=== PATIENT | female | born 2000 | race Caucasian/White ===

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

== ENCOUNTER 2021-02-01 12:17 | Inpatient (IN) | payer MEDICAID ==
[~2021-02-01] VITALS: Ht 162.6 cm; Wt 54.8 kg
[~2021-02-01 12:17] MED LIST: AMOX875T2 PO
[2021-02-01 15:41] LABS: BASOPHILS % (AUTO) 0.5 % (0.0-2.0); EOSINOPHILS % (AUTO) 0.1 % (1.0-6.0); HEMATOCRIT 43.1 % (36-46); HEMOGLOBIN 14.1 g/dL (12.0-16.0); LYMPHOCYTES % (AUTO) 10.2 % (22.0-44.0); MEAN CORPUSCULAR HGB CONC 32.7 G/dL (31.0-37.0); MEAN CORPUSCULAR VOLUME 83 fL (80-100); MONOCYTES # (AUTO) 0.3 K/uL (0.1-1.0); NEUTROPHILS # (AUTO) 8.7 K/uL (1.8-7.7); PLATELET COUNT (AUTO) 275 K/uL (150-450); RED BLOOD CELL COUNT(AUTO) 5.23 MIL/uL (4.00-5.20); RED CELL DISTRIBUTION WIDTH 14.9 % (11.5-14.5)
[2021-02-01 15:42] LABS: NEUTROPHILS % (AUTO) 86.2 % (40.0-70.0)
[2021-02-01 15:56] LABS: ANION GAP 11 mmol/L (8-16); CARBON DIOXIDE 24 mmol/L (22-29); CHLORIDE 106 mmol/L (98-107); CREATININE 0.69 mg/dL (0.60-1.30); GLOMERULAR FILTR. RATE CALC > 60 mL/min (>60); GLUCOSE,RANDOM 124 mg/dL (70-110); POTASSIUM 3.9 mmol/L (3.5-5.1); SODIUM SERUM 141 mmol/L (136-145); UREA NITROGEN, BLOOD 11 mg/dL (7-18)
[2021-02-01 16:09] LABS: ALANINE AMINOTRANSFERASE 23 U/L (12-78); ALKALINE PHOSPHATASE 90 U/L (46-116); ASPARTATE AMINOTRANSFERASE 13 U/L (15-37); BILIRUBIN,TOTAL 0.4 mg/dL (0.1-1.0); HCG,QUANTITATIVE < 1 mIU/mL (0-6); TOTAL PROTEIN, SERUM 7.5 g/dL (6.4-8.2)
[2021-02-01] MEDS ORDERED: HALOPERIDOL LACTATE 5 MG/ML VIAL IM ONE (16:45)
[2021-02-01] MEDS ORDERED: DiphenhydrAMINE HCL 50 MG/ML VIAL IM ONE (16:45)
[2021-02-01] MEDS ORDERED: LORazepam 2 MG/ML VIAL IM ONE (16:45)
[2021-02-01 18:03] LABS: COVID AG,FIA SOURCE NASAL SWAB
[2021-02-01 20:14] VITALS: BP 117/72
[2021-02-02] MEDS ORDERED: LOPERAMIDE HCL 2 MG CAPSULE PO PRN (07:15)
[2021-02-02] MEDS ORDERED: IBUPROFEN 400 MG TABLET PO PRN (07:15)
[2021-02-02] MEDS ORDERED: PETROLATUM,WHITE 28 GM JELLY TP PRN (07:15)
[2021-02-02] MEDS ORDERED: GuaiFENesin/D-METHORPHAN [SUGAR-FREE] 200-20MG/10 ML SYRUP UDCUP PO PRN (07:15)
[2021-02-02] MEDS ORDERED: CloNIDine HCL 0.1 MG TABLET PO PRN (07:15)
[2021-02-02] MEDS ORDERED: NICOTINE 14 MG/24 HOUR PATCH TD PRN (07:15)
[2021-02-02] MEDS ORDERED: ALBUTEROL SULFATE HFA 90 MCG/PUFF 8 GM INHALER IH PRN (07:15)
[2021-02-02] MEDS ORDERED: MAG HYDROX/AL HYDROX/SIMETH ES 30 ML SUSPENSION UDCUP PO PRN (07:15)
[2021-02-02] MEDS ORDERED: ONDANSETRON HCL 4 MG TABLET PO PRN (07:15)
[2021-02-02] MEDS ORDERED: ACETAMINOPHEN 325 MG TABLET PO PRN (07:15)
[2021-02-02 11:01] LABS: CHOL/HDL RATIO 3.1 (3.9-5.7); THYROID STIMULATING HORMONE 1.16 uIU/mL (0.36-3.74)
[2021-02-02 12:55] LABS: FREE T4 (FREE THYROXINE) 1.18 ng/dL (0.76-1.46)
[2021-02-03 08:10] VITALS: BP 114/74
[2021-02-03 16:24] VITALS: BP 112/75
[2021-02-04 04:09] VITALS: BP 95/61
[2021-02-04 09:39] VITALS: BP 105/63
[2021-02-04] MEDS: OLANZapine 5 MG TABLET PO SCH ×2 (11:15→16:29)
[2021-02-04] MEDS: MAGNESIUM HYDROXIDE SUSPENSION 30 ML UDCUP PO PRN (14:03)
[2021-02-04] MEDS: LORazepam 2 MG TABLET PO PRN ×2 (14:58→20:58)
[2021-02-04 16:52] VITALS: BP 115/70
[2021-02-04] MEDS: ZOLPIDEM TARTRATE 10 MG TABLET PO PRN (20:58)
[2021-02-05 11:45] VITALS: BP 100/53
[2021-02-05] MEDS: OLANZapine 5 MG TABLET PO SCH ×2 (11:45→16:34)
[2021-02-05] MEDS: HALOPERIDOL 5 MG TABLET PO PRN (16:34)
[2021-02-05 20:00] VITALS: BP 105/66
[2021-02-05] MEDS: LORazepam 2 MG TABLET PO PRN (20:51)
[2021-02-05] MEDS: ZOLPIDEM TARTRATE 10 MG TABLET PO PRN (20:51)
[2021-02-06 09:25] VITALS: BP 92/56
[2021-02-06] MEDS: OLANZapine 5 MG TABLET PO SCH ×2 (09:33→16:19)
[2021-02-06 16:00] VITALS: BP 107/60
[2021-02-06] MEDS: HALOPERIDOL 5 MG TABLET PO PRN (16:19)
[2021-02-06] MEDS: ZOLPIDEM TARTRATE 10 MG TABLET PO PRN (20:47)
[2021-02-06] MEDS: LORazepam 2 MG TABLET PO PRN (20:47)
[2021-02-07 08:43] VITALS: BP 102/68
[2021-02-07] MEDS: OLANZapine 5 MG TABLET PO SCH (09:05)
[2021-02-07] MEDS: GABAPENTIN 300 MG CAPSULE PO SCH ×2 (12:13→16:10)
[2021-02-07] MEDS: LORazepam 2 MG TABLET PO PRN (14:48)
[2021-02-07 15:33] LABS: COVID AG,FIA SOURCE NASOPHARYNGEAL
[2021-02-07 16:01] VITALS: BP 98/57
[2021-02-07] MEDS: OLANZapine 10 MG TABLET PO SCH (16:10)
[2021-02-08] MEDS: ZOLPIDEM TARTRATE 10 MG TABLET PO PRN ×2 (02:59→20:06)
[2021-02-08 08:39] VITALS: BP 90/50
[2021-02-08] MEDS: OLANZapine 10 MG TABLET PO SCH ×2 (08:59→16:05)
[2021-02-08] MEDS: GABAPENTIN 300 MG CAPSULE PO SCH ×2 (08:59→16:05)
[2021-02-08 16:21] VITALS: BP 98/64
[2021-02-09] MEDS: LORazepam 2 MG TABLET PO PRN ×2 (02:02→12:55)
[2021-02-09] MEDS: HALOPERIDOL 5 MG TABLET PO PRN (02:02)
[2021-02-09] MEDS: OLANZapine 10 MG TABLET PO SCH ×2 (08:13→16:46)
[2021-02-09] MEDS: GABAPENTIN 300 MG CAPSULE PO SCH ×2 (08:13→16:46)
[2021-02-09 11:51] VITALS: BP 98/67
[2021-02-09 16:54] VITALS: BP 95/54
[2021-02-09] MEDS: ZOLPIDEM TARTRATE 10 MG TABLET PO PRN (22:43)
[2021-02-10] MEDS: LORazepam 2 MG TABLET PO PRN (05:28)
[2021-02-10] MEDS: GABAPENTIN 300 MG CAPSULE PO SCH ×2 (08:04→16:13)
[2021-02-10] MEDS: OLANZapine 10 MG TABLET PO SCH ×2 (08:04→16:13)
[2021-02-10 08:52] VITALS: BP 99/67
[2021-02-10 16:23] VITALS: BP 93/60
[2021-02-10] MEDS: ZOLPIDEM TARTRATE 10 MG TABLET PO PRN (21:58)
[2021-02-11] MEDS: GABAPENTIN 300 MG CAPSULE PO SCH ×2 (07:53→16:10)
[2021-02-11] MEDS: OLANZapine 10 MG TABLET PO SCH ×2 (07:53→16:10)
[2021-02-11 08:09] VITALS: BP 107/65
[2021-02-12] MEDS: OLANZapine 10 MG TABLET PO SCH ×2 (07:28→17:27)
[2021-02-12] MEDS: MAGNESIUM HYDROXIDE SUSPENSION 30 ML UDCUP PO PRN (07:28)
[2021-02-12] MEDS: DOCUSATE SODIUM 100 MG CAPSULE PO PRN (07:28)
[2021-02-12] MEDS: GABAPENTIN 300 MG CAPSULE PO SCH ×2 (07:28→17:27)
[2021-02-12 08:09] VITALS: BP 106/65
[2021-02-12] MEDS: LORazepam 2 MG TABLET PO PRN (12:29)
[2021-02-12] MEDS: ZOLPIDEM TARTRATE 10 MG TABLET PO PRN (23:05)
[2021-02-13] MEDS: HALOPERIDOL 5 MG TABLET PO PRN (02:38)
[2021-02-13] MEDS: LORazepam 2 MG TABLET PO PRN (02:38)
[2021-02-13] MEDS: OLANZapine 10 MG TABLET PO SCH ×2 (08:16→15:58)
[2021-02-13] MEDS: GABAPENTIN 300 MG CAPSULE PO SCH ×2 (08:16→15:58)
[2021-02-13 09:26] LABS: COVID AG,FIA SOURCE NASAL SWAB
[2021-02-13 11:50] VITALS: BP 98/72
[2021-02-13 16:49] VITALS: BP 100/60
[2021-02-13] MEDS: ZOLPIDEM TARTRATE 10 MG TABLET PO PRN (23:04)
[2021-02-14] MEDS: HALOPERIDOL 5 MG TABLET PO PRN (05:17)
[2021-02-14] MEDS: LORazepam 2 MG TABLET PO PRN (05:17)
[2021-02-14 08:00] VITALS: BP 97/63
[2021-02-14] MEDS: OLANZapine 10 MG TABLET PO SCH (08:00)
[2021-02-14] MEDS: DOCUSATE SODIUM 100 MG CAPSULE PO PRN (08:00)
[2021-02-14] MEDS: GABAPENTIN 300 MG CAPSULE PO SCH (08:00)
[2021-02-14] MEDS ORDERED: GABA-1181 PO (11:24)
[2021-02-14] MEDS ORDERED: OLAN10TA74 PO (11:24)
[2021-02-14] MEDS ORDERED: BENZOCAINE/MENTHOL LOZENGE PO PRN (12:15)
== END 2021-02-14 13:55 | disposition home or self-care (01) | DRG 750 ==
LOC: EMS 12:34 → 3EC 17:39
PROVIDERS: ADMIT Psychiatry & Neurology Psychiatry; ATTEND Psychiatry & Neurology Psychiatry
DX: F20.0 Paranoid schizophrenia (principal); E44.0 Moderate protein-calorie malnutrition; R45.851 Suicidal ideations; Z20.822 Contact with and (suspected) exposure to COVID-19; R00.0 Tachycardia, unspecified; R73.9 Hyperglycemia, unspecified; F99 Mental disorder, not otherwise specified; Z68.20 Body mass index [BMI] 20.0-20.9, adult; Z78.1 Physical restraint status; Z79.899 Other long term (current) drug therapy
CPT/HCPCS: 80053; 80061; 84439; 84443; 84702; 85025; 99285; G0480; J1200; J1630; J2060